=== PATIENT | male | born 1955 | race Caucasian/White ===

== ENCOUNTER 2021-11-11 18:34 | Emergency (ER) | payer MEDICARE, OTHER, SELFPAY ==
[2021-11-11 19:25] VITALS: BP 136/69; PULSE 72; RESP 18; TEMP 36.9; O2SAT 98; BMI 20.7
== END 2021-11-11 19:35 | disposition left against medical advice (07) ==
PROVIDERS: Emergency Provider Emergency Medicine; PCP Physician Assistant
CPT/HCPCS: 99281

== ENCOUNTER → 2021-11-15 08:32 | Outpatient (CLI) | payer MEDICARE, OTHER, SELFPAY ==
--- NOTE | 2021-11-15 | DI.MRI.S_ITS ---
PROCEDURE: MR SHOULDER RT WO CON INDICATIONS: Pain in right shoulder TECHNIQUE: Noncontrast oblique coronal T2 fast spin echo with fat saturation, oblique sagittal T1 spin echo and T2 fast spin echo with fat saturation, axial T1 spin echo and T2 fast spin echo with fat saturation through the shoulder. COMPARISON: [facility] ([facility]), CR, XR SHOULDER RT MIN 2V, 11/11/2021, 16:25. FINDINGS: Image quality: Some images are mildly degraded by motion artifact. Rotator cuff: Tendinopathy of the supraspinatus and infraspinatus tendons with full-thickness tears measuring up to 2.2 cm. T2 hyperintense signal within the musculotendinous junction of the infraspinatus. Subscapularis tendinopathy with interstitial tear. Grade 1/2 atrophy of the supraspinatus muscle. Bones and bursae: No evidence of fracture. Fibrocystic change in the humeral head, measuring up to 9 mm. Moderate acromioclavicular joint degeneration. No os acromiale. Subacromial-subdeltoid bursal fluid is present. Capsule and soft tissues: Small focus of T2 hyperintense signal in superior labrum, concerning for small tear, possibly degenerative. The long head of the biceps tendon is within the bicipital groove. The proximal aspect of the tendon and attachment to the labrum is not well seen. The coracohumeral ligament is not well seen. IMPRESSION: 1. Tendinopathy of the supraspinatus and infraspinatus tendon with full-thickness tears. Additional tear in the musculotendinous junction of the infraspinatus. 2. Subscapularis tendinopathy with interstitial tear. 3. Grade 1/2 supraspinatus atrophy. 4. Small superior labral tear, possibly degenerative. 5. Subacromial-subdeltoid fluid, likely related to the patient's rotator cuff tears. 6. Moderate AC joint degeneration. Dictated by: Amado Lorenz M.D. on 11/17/2021 at 10:11 Approved by: Amado Lorenz M.D. on 11/17/2021 at 10:20
== END ==
PROVIDERS: PCP Family Medicine; Referring Provider Family Medicine; Visit Provider Family Medicine
DX: M75.121 Complete rotator cuff tear or rupture of right shoulder, not specified as traumatic (principal); M19.011 Primary osteoarthritis, right shoulder; S43.491A Other sprain of right shoulder joint, initial encounter; M25.511 Pain in right shoulder
CPT/HCPCS: 73221

== ENCOUNTER → 2022-03-02 11:52 | Outpatient (CLI) | payer MEDICARE, OTHER, SELFPAY ==
--- NOTE | 2022-03-02 | DI.RAD.S_ITS ---
PROCEDURE: FL SHOULDER INJECTION MR/CT RT INDICATIONS: Other acute postprocedural pain right shoulder COMPARISON: None. TECHNIQUE: The indications, alternatives, benefits, risks, and complications of the procedure were explained to the patient. Written informed consent was obtained and placed in the chart. The shoulder was examined fluoroscopically and a site for needle placement chosen for entry into the glenohumeral joint from an anterior approach. The skin was prepped and draped in a sterile fashion, and 1% lidocaine infiltrated from skin down to joint capsule. A spinal needle was inserted into the glenohumeral joint, and a small amount of iodinated contrast media injected to confirm intra-articular placement of the needle tip. This was followed by approximately 13 mL dilute solution of a gadolinium containing MR contrast agent. The needle was removed and a dressing was applied. The patient was given postprocedural instructions and sent to the MR suite for MR imaging. FINDINGS: A single fluoroscopic spot image demonstrates intra-articular location of injected iodinated contrast. IMPRESSION: Successful fluoroscopically guided administration of dilute Gadolinium solution into the shoulder joint for MR arthrogram. Dictated by: Shad Dominguez M.D. on 03/02/2022 at 13:48 Approved by: Shad Dominguez M.D. on 03/02/2022 at 13:50
--- NOTE | 2022-03-02 13:14 | DI.MRI.S_ITS ---
PROCEDURE: MR SHOULDER RT W CON INDICATIONS: Other acute postprocedural pain right shoulder TECHNIQUE: After the administration of 12 mL of dilute intra-articular Gadolinium contrast, oblique coronal T1 and T2 spin echo with fat saturation, oblique sagittal T1 spin echo with and without fat saturation, oblique sagittal T2 fast spin echo with fat saturation, axial T1 spin echo with fat saturation through the shoulder. COMPARISON: [facility], MR, MR SHOULDER RT WO CON, 11/15/2021, 9:05. [facility], RF, FL SHOULDER INJECTION MR/CT RT, 03/02/2022, 12:59. FINDINGS: Image quality: Excellent. Rotator cuff: Postsurgical changes are seen from interval rotator cuff tendon repair. There is a recurrent large full-thickness tear involving the distal supraspinatus and infraspinatus tendons with proximal tendon retraction measuring up to 2.7 cm from the distal fixation devices. The teres minor tendon is intact. The subscapularis tendon demonstrates mild tendinosis and low grade intrasubstance tearing at the distal insertion. There is no significant rotator cuff muscle atrophy. Mild soft tissue edema is seen within the medial portions of the supraspinatus and infraspinatus muscles, consistent with low-grade muscle strains. Bones and bursae: Surgical anchors are seen in the greater tuberosity. No acute trabecular bone injury or fracture. Chronic traction cystic changes are seen at the posterosuperior humeral head and greater tuberosity near the rotator cuff tendon insertions. Moderate degenerative changes are seen in the acromioclavicular joint with subchondral edema and subchondral cystic changes as well as small superiorly projecting osteophytes. Intra-articular contrast material communicates with the subacromial/subdeltoid bursa through the full-thickness rotator cuff tendon tear. Capsule and soft tissues: Low-grade partial tearing of the superior to anterosuperior labrum is again seen, which appears chronic and may be degenerative. The proximal biceps long head tendon demonstrates moderate tendinosis. There is partial effacement of the fat in the rotator interval. No capsular defect is seen. IMPRESSION: 1. Postsurgical changes from rotator cuff tendon repair with a large recurrent full-thickness tear of the supraspinatus and infraspinatus tendons with proximal tendon retraction measuring approximately 2.7 cm from the distal fixation devices. Low-grade strains of the supraspinatus and infraspinatus muscles are noted. 2. Mild tendinosis and low grade intrasubstance tearing of the subscapularis tendon at the superior insertion. 3. Moderate proximal biceps long head tendinosis. 4. Mild partial tearing of the superior to anterosuperior labrum does not appear significantly changed and may be degenerative. 5. Moderate degenerative changes at the acromioclavicular joint with subchondral edema. Dictated by: Shad De La Paz M.D. on 03/03/2022 at 9:42 Approved by: Shad De La Paz M.D. on 03/03/2022 at 9:51
== END ==
PROVIDERS: PCP Family Medicine; Referring Provider Family Medicine; Visit Provider Family Medicine
DX: M75.121 Complete rotator cuff tear or rupture of right shoulder, not specified as traumatic (principal); S43.491A Other sprain of right shoulder joint, initial encounter; G89.18 Other acute postprocedural pain; M25.511 Pain in right shoulder
CPT/HCPCS: 23350; 73222; 77002

== ENCOUNTER → 2022-09-16 08:56 | Outpatient (CLI) | payer MEDICARE, OTHER, SELFPAY ==
--- NOTE | 2022-09-16 | DI.RAD.S_ITS ---
PROCEDURE: XR CERVICAL SPINE 4V OR 5V INDICATIONS: NECK PAIN TECHNIQUE: 5 views of the cervical spine were acquired. COMPARISON: None. FINDINGS: Bones: No fractures or dislocations to the T1 level. No suspicious bony lesions. There is severe degenerative disc disease at C3-C4, C4-C5, C5-C6 and C6-C7. Moderate bilateral facet arthropathy throughout the cervical spine, most pronounced at C5-C6 and C6-C7 on the left. There is decreased range of motion between flexion and extension. There is grade 1 anterolisthesis of C5-C6 with flexion. Soft tissues: Prevertebral soft tissues are normal in thickness. IMPRESSION: 1. Multilevel degenerative disc and facet disease in cervical spine. 2. Grade 1 anterolisthesis of C5 on C6 with flexion. 3. Decreased range of motion. Dictated by: Jaime Murdock M.D. on 09/17/2022 at 9:31 Approved by: Jaime Murdock M.D. on 09/17/2022 at 9:33
== END ==
PROVIDERS: PCP Family Medicine; Referring Provider Family Medicine; Visit Provider Family Medicine
DX: M47.812 Spondylosis without myelopathy or radiculopathy, cervical region (principal); M50.31 Other cervical disc degeneration, high cervical region; M43.12 Spondylolisthesis, cervical region
CPT/HCPCS: 72050

== ENCOUNTER → 2024-11-09 11:51 | Outpatient (CLI) | payer MEDICARE, OTHER, SELFPAY ==
--- NOTE | 2024-11-09 11:54 | DI.US.S_ITS ---
PROCEDURE: US SOFT TISSUE HEAD AND NECK INDICATIONS: HYPERLIPIDEMIA TECHNIQUE: Real-time scanning was performed of the bilateral parotid glands and cervical lymph node stations, with image documentation. COMPARISON: None. FINDINGS: Sonographic evaluation of the parotid glands and cervical lymph node stations does not identify any abnormal enlargement, mass, fluid collection, or lymphadenopathy. IMPRESSION: No acute sonographic abnormality of the parotid glands or cervical lymph node stations. Dictated by: Az Melvin M.D. on 11/10/2024 at 10:58 Approved by: Az Melvin M.D. on 11/10/2024 at 10:59
--- NOTE | 2024-11-09 11:55 | DI.US.S_ITS ---
PROCEDURE: US CAROTID DOPPLER BI INDICATIONS: HYPERLIPIDEMIA TECHNIQUE: Color and pulse Doppler interrogation was performed of both carotid systems, with image documentation and velocity measurements. COMPARISON: None. FINDINGS: Stenosis calculations are based on SRU (Society of Radiologists in Ultrasound) criteria. Right side: Brachial blood pressure: 109/64 mm Hg. Common carotid artery peak systolic velocity: 104 cm/sec. Internal carotid artery peak systolic velocity: 82 cm/sec. Internal carotid artery end diastolic velocity: 30 cm/sec. External carotid artery peak systolic velocity: 130 cm/sec. ICA/CCA peak systolic ratio: 0.8 . Blanton scale imaging description: Mild plaque Percent internal carotid artery stenosis: Less than 50% stenosis . Vertebral artery: Flow direction is antegrade. Left side: Brachial blood pressure: 109/69 mm Hg. Common carotid artery peak systolic velocity: 98 cm/sec. Internal carotid artery peak systolic velocity: 98 cm/sec. Internal carotid artery end diastolic velocity: 27 cm/sec. External carotid artery peak systolic velocity: 92 cm/sec. ICA/CCA peak systolic ratio: 1 Blanton scale imaging description: Mild plaque Percent internal carotid artery stenosis: Less than 50% stenosis . Vertebral artery: Flow direction is antegrade. IMPRESSION: 1. In the right carotid artery, there is less than 50% stenosis based on peak systolic velocity criteria. 2. In the left carotid artery, there is less than 50% stenosis based on peak systolic velocity criteria. 3. Antegrade vertebral arteries. Dictated by: Az Melvin M.D. on 11/10/2024 at 10:55 Approved by: Az Melvin M.D. on 11/10/2024 at 10:57
== END ==
PROVIDERS: PCP Family Medicine; Referring Provider Family Medicine; Visit Provider Family Medicine
DX: I65.23 Occlusion and stenosis of bilateral carotid arteries (principal); R93.89 Abnormal findings on diagnostic imaging of other specified body structures; E78.5 Hyperlipidemia, unspecified; R51.9 Headache, unspecified
CPT/HCPCS: 76536; 93880

== ENCOUNTER → 2025-05-24 11:06 | Outpatient (CLI) | payer MEDICARE, OTHER, SELFPAY ==
--- NOTE | 2025-05-24 11:08 | DI.CT.S_ITS ---
PROCEDURE: CT KIDNEY URETER BLADDER (KUB) INDICATIONS: BLOOD IN URINE TECHNIQUE: CT of the abdomen and pelvis was obtained without intravenous contrast. Coronal and sagittal reformats were performed. For radiation dose reduction, the following was used: automated exposure control, adjustment of mA and/or kV according to patient size. COMPARISON: None. FINDINGS: Image quality: Diagnostic. Lower Chest: No significant findings. ABDOMEN: Liver: No contour-deforming mass. Gallbladder: No radiopaque gallstones or wall thickening. Biliary ducts: No biliary dilation. Pancreas: No ductal dilation. Spleen: Size is within normal limits. Adrenal Glands: No adrenal nodules. Kidneys and Ureters: Punctate non-obstructing stone in the right lower pole (2/45). No hydronephrosis. No contour-deforming mass. Stomach and Bowel: Normal colonic caliber. Suggestion of rectal wall thickening, although evaluation is limited on noncontrast examination. Peritoneum: No abnormal intraperitoneal fluid. No free air. Ventral Wall: No significant hernia. Abdominal Nodes: No retroperitoneal or mesenteric adenopathy by size criteria. Vessels: Aorta and inferior vena cava are normal in size. PELVIS: Pelvic Organs: Prostatomegaly. Bladder: Circumferential bladder wall thickening. Pelvic Nodes: No enlarged lymph nodes. Miscellaneous: No inguinal hernias are seen. Bones: No aggressive osseous abnormality. Degenerative changes of the spine and hips. Prominent dextro curvature of the lower thoracic and lumbar spine centered at L2-3. IMPRESSION: No hydronephrosis or obstructing renal stone. Punctate nonobstructing stone in the right lower pole. Prostatomegaly. Circumferential bladder wall thickening, which may be secondary to chronic bladder outlet obstruction versus infection. Correlate with clinical symptoms and urinalysis as appropriate. Suggestion of rectal wall thickening, although evaluation is limited on noncontrast examination. Correlate with colonoscopy results. Dictated by: Maribell Chapman M.D. on 05/27/2025 at 0:11 Approved by: Maribell Chapman M.D. on 05/27/2025 at 0:17
== END ==
PROVIDERS: PCP Family Medicine; Referring Provider Family Medicine; Visit Provider Family Medicine
DX: R31.9 Hematuria, unspecified (principal); N20.0 Calculus of kidney; N40.0 Benign prostatic hyperplasia without lower urinary tract symptoms
CPT/HCPCS: 74176

== ENCOUNTER → 2025-06-20 13:38 | Outpatient (CLI) | payer MEDICARE, OTHER, SELFPAY ==
--- NOTE | 2025-06-20 13:41 | DI.MRI.S_ITS ---
PROCEDURE: MR HEAD/BRAIN WO CON INDICATIONS: New onset of headache with cough TECHNIQUE: Non-contrast axial T1 spin echo, axial T2 fast spin echo, sagittal and axial FLAIR, coronal T2 fast spin echo, axial gradient echo, axial diffusion and ADC through the brain. COMPARISON: None. FINDINGS: Image quality: Excellent. CSF spaces: Ventricles appear symmetric in size and shape. Basal cisterns are patent. No extra-axial fluid collections. Brain: No intracranial bleeds or mass effects. There is cerebral volume loss for age. There are periventricular and deep white matter chronic small vessel ischemic changes. Brainstem appears normal. Diffusion-weighted images show no acute infarct. No chronic ischemic insults. Normal intravascular flow voids are present. Skull and face: Calvarial bone marrow is normal in signal. Orbits are normal. Sinuses: Sinuses and mastoids are clear. IMPRESSION: No acute intracranial abnormalities. Age-related global volume loss and chronic microvascular ischemic change. Dictated by: Olman Altman M.D. on 06/21/2025 at 9:11 Approved by: Olman Altman M.D. on 06/21/2025 at 9:13
--- NOTE | 2025-06-20 13:41 | DI.MRI.S_ITS ---
PROCEDURE: MR CERVICAL SPINE WO CON INDICATIONS: New onset of headache with cough TECHNIQUE: Noncontrast sagittal T1 spin echo and T2 fast spin echo, sagittal STIR, foraminal oblique sagittal T2 fast spin echo, and axial gradient echo or T2 fast spin echo through the cervical spine. COMPARISON: [facility], CR, XR CERVICAL SPINE 4V OR 5V, 09/16/2022, 9:21. FINDINGS: Image quality: Excellent. Alignment and Curvature: There is trace retrolisthesis of C6 on C7, trace anterolisthesis of C7 on T1. Near complete osseous fusion is present at C4-5, T2-3. Bone Marrow: Marrow demonstrates normal overall signal. Spinal Cord: Visualized spinal cord has normal size and signal. No cerebellar tonsillar herniation. Paraspinous Soft Tissues: No paravertebral masses. Prevertebral soft tissues are normal in thickness. Ill-defined areas of nodularity are present within the lung apices bilaterally. No priors. Discs: Multilevel severe disc desiccation most significant at C3-4, C4-5. C2-C3: No disc bulge, spinal stenosis or foraminal narrowing. C3-C4: Mild disc bulge with effacement of the anterior thecal sac. Severe right and moderate to severe left foraminal narrowing with uncovertebral hypertrophy. C4-C5: Mild disc bulge with mild spinal stenosis. Moderate bilateral foraminal narrowing with uncovertebral hypertrophy. C5-C6: Mild disc bulge including a right lateral component with [id number] spinal stenosis. There is severe right and [id number] left foraminal narrowing with uncovertebral hypertrophy. C6-C7: Mild disc bulge including a right lateral component. There is effacement of the anterior thecal sac. Severe right foraminal narrowing with uncovertebral hypertrophy. C7-T1: Minimal disc bulge with moderate bilateral foraminal narrowing and uncovertebral hypertrophy. IMPRESSION: Multilevel moderate to severe foraminal narrowing most significant at C3-4, C5-6 and C6-7 secondary to uncovertebral arthropathy. Multilevel disc bulges. Biapical pulmonary areas of nodularity without priors. CT chest is recommended for further evaluation. Dictated by: Brianne Higginbotham M.D. on 06/21/2025 at 9:47 Approved by: Brianne Higginbotham M.D. on 06/21/2025 at 10:02
== END ==
LOC: MRI 13:40
PROVIDERS: PCP Family Medicine; Referring Provider Family Medicine; Visit Provider Family Medicine
DX: R51.9 Headache, unspecified (principal); M50.31 Other cervical disc degeneration, high cervical region; M48.02 Spinal stenosis, cervical region
CPT/HCPCS: 70551; 72141